=== PATIENT | male | born 1940 | race Caucasian/White ===

== ENCOUNTER → 2016-12-19 | Outpatient (CLI) | payer MEDICARE, OTHER ==
--- NOTE | 2016-12-20 10:34 | US ---
EXAMINATION TYPE: US thyroid st tissue head/neck DATE OF EXAM: 12/19/2016 4:44 PM COMPARISON: CT in PACS 10/15/2016 CLINICAL HISTORY: Thyroid Nodule E04.1. Abnormal CT GLAND SIZE: Right Lobe: 4.7 x 1.6 x 1.8 cm Overall Parenchyma: heterogenous Left Lobe: 5.6 x 3.2 x 3.4 cm Overall Parenchyma: heterogeneous Isthmus Thickness: 0.5 cm NODULES RIGHT: # of nodules measured on right: 2 1. 1.9 X 1.1 x 1.2 cm hypoechoic solid nodule at the mid pole with poorly defined margins; This no dule is wider than tall and shows intranodular vascularity. This corresponds to the CT finding. Prior size: No prior 2. 1.7 X 0.8 x 1.0 cm hypoechoic solid nodule superior to right thyroid adjacent to right carotid ar dread, possible parathyroid location with poorly defined margins; This nodule is wider than tall Prior size: No prior LEFT: # of nodules measured on left: 1 1. 4.4 X 2.7 x 3.4 cm hypoechoic mixed nodule at the lower pole with well-defined margins;This nodu le is wider than tall and shows intranodular vascularity. Prior size: Seen on CT ISTHMUS: # of nodules measured in the isthmus: 0 TECHNOLOGIST IMPRESSION: Bilateral neck scanned, no abnormal lymphadenopathy noted. Nodules bilatera lly with possible parathyroid nodule superior to right thyroid. Please note, this is an elderly patient who is hard to ambulate and unable to tolerate probe pressure during exam IMPRESSION: 1. Thyroid nodules. Monitoring is recommended.
== END | disposition home or self-care (01) ==
LOC: RADUSWWP 16:29
PROVIDERS: ATTEND Family Medicine
DX: E04.2 Nontoxic multinodular goiter (principal)
CPT/HCPCS: 76536

== ENCOUNTER → 2017-10-26 | Outpatient (CLI) | payer MEDICARE, OTHER ==
--- NOTE | 2017-10-26 17:58 | US ---
EXAMINATION TYPE: US venous doppler duplex LE RT DATE OF EXAM: 10/26/2017 5:23 PM COMPARISON: NONE CLINICAL HISTORY: Edema of RLE R60.0. Right leg pain. Patient states having two blood clots in left leg at age 59. Not warm to touch. SIDE PERFORMED: Right TECHNIQUE: The lower extremity deep venous system is examined utilizing real time linear array sonog casimiro with graded compression, doppler sonography and color-flow sonography. VESSELS IMAGED: External Iliac Vein (EIV) Common Femoral Vein Greater Saphenous Vein * Femoral Vein Popliteal Vein Small Saphenous Vein * Proximal Calf Veins (* superficial vessels) Patient was scanned in his mobilized chair with legs propped up. Limited exam due to patient joaquin ble to tolerate general probe pressure and patient body habitus. Compressions deferred due to patien t unable to tolerate. Second technologist, Briana, came in for second opinion/scan. Right Leg: Appears negative for acute DVT as visualized. Many limitations as state above. IMPRESSION: Negative exam. No evidence of deep venous thrombosis in the right leg.
== END ==
LOC: RADUSMAIN 16:32
PROVIDERS: ATTEND Physician Assistant
DX: R60.0 Localized edema (principal)

== ENCOUNTER → 2018-04-07 | Outpatient (CLI) | payer MEDICARE, OTHER ==
--- NOTE | 2018-04-07 11:39 | XR ---
EXAMINATION TYPE: XR cervical spine comp DATE OF EXAM: 04/07/2018 TECHNIQUE: Frontal, lateral, oblique, swimmers, and open mouth view of the cervical spine are obtaine d. HISTORY: M54.2 Cervicalgia COMPARISON: 10/03/2016 FINDINGS: The cervical spine is visualized in its entirety from C1 thru the top of T1 level, it is s atisfactory in alignment without evidence of acute fracture or dislocation. There are large flowing a nd bridging osteophytes seen anteriorly most compatible with diffuse radiographic skeletal hyperostos is. The known ossification of the posterior longitudinal ligament seen on CT is better visualized on CT dated 10/15/2016. The pre-vertebral soft tissue appears within normal limits. The C1-C2 articulat ion is within normal limits on the open mouth view. Oblique images were not performed on the prior of 10/03/2016. On the current examination there is at l east mild neural foraminal narrowing at C4-5 and C7-T1 on the left and 4 as well as C6-7 on the right . There is loss of the usual cervical lordosis. IMPRESSION: 1. 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 The known ossificatio n of the posterior longitudinal ligament is better evaluated on CT. Neural foraminal narrowing is see n bilaterally as described above. 2. The previously seen fracture of the inferior endplate of L5 is also not well appreciated radiograp hically with no vertebral body height loss or malalignment.
== END | disposition home or self-care (01) ==
LOC: RADXRMAIN 10:54
PROVIDERS: ATTEND Family Medicine
DX: M48.8X2 Other specified spondylopathies, cervical region (principal); M48.02 Spinal stenosis, cervical region
CPT/HCPCS: 72050

== ENCOUNTER 2019-07-06 17:13 | Emergency (ER) | payer MEDICARE, OTHER ==
[2019-07-06] MEDS ORDERED: SODIUM CHLORIDE 0.9% 1,000 ML IV STA (17:18)
[2019-07-06 17:41] LABS: Basophils # (A) 0.1 k/uL (0-0.2); Basophils % (A) 0 %; Eosinophils # (A) 0.4 k/uL (0-0.7); Eosinophils % (A) 3 %; HGB 14.3 gm/dL (13.0-17.5); Hypochromasia Slight; Lymphocytes # (A) 4.8 k/uL (1.0-4.8); Lymphocytes % (A) 31 %; MCH 28.2 pg (25.0-35.0); MCHC 31.8 g/dL (31.0-37.0); MCV 88.8 fL (80.0-100.0); Mean Platelet Volume 7.6; Monocytes # (A) 0.7 k/uL (0-1.0); Monocytes % (A) 5 %; Neutrophils # (A) 9.1 k/uL (1.3-7.7); Neutrophils % (A) 59 %; Platelet Count 260 k/uL (150-450); RBC 5.07 m/uL (4.30-5.90); RDW 14.5 % (11.5-15.5); WBC 15.5 k/uL (3.8-10.6)
--- NOTE | 2019-07-06 17:48 | ED ---
CPR HPI - General Chief Complaint: Cardiac Arrest/CPR Stated Complaint: Cardiac Arrest Source: EMS, RN notes reviewed, old records reviewed Mode of arrival: EMS Limitations: language barrier, altered mental status, physical limitation - History of Present Illness Initial Comments: This is a 78-year-old male the ER for evaluation, history shortening events or difficult to ascertain the patient was in a wheelchair at [facility] when he went unresponsive fell forward and hit his head he does have abrasion to his anterior head, history obtained from EMS and transport, CPR was started in the field was patient was known to be nonresponsive and was found to be without pulse. EMS s tates patient was asystolic the did give epi after intubation and CPR the patient went and A. fib with RVR, patient resents ER today with tube in good position no longer requiring CPR with positive pulse. MD Complaint: found unresponsive, collapsed during rest -: minute(s) Place: other ([facility]) Bystander CPR Performed: Yes AED Applied by Bystander/Piano Bench Assembler: Yes Shock Advised: No Initial Findings in the Field: unresponsive, no respirations, no pulse ROSC in the Field: Yes Associated Injuries: Yes (head inury) Associated Symptoms: trauma Treatments Prior to Arrival: intubation, chest compressions, epinephrine mgs # (1), spinal immobilization - Related Data Home Medications Medication Instructions Recorded Confirmed Acetaminophen Suppository [Tylenol 650 mg RECTAL Q4H PRN 07/06/19 07/06/19 Suppository] Docusate [Colace] 200 mg PO BID 07/06/19 07/06/19 Gabapentin 600 mg PO BID 07/06/19 07/06/19 MORPHINE ORAL CHANNING CONC 20mg/mL 5 - 20 mg PO Q1H PRN 07/06/19 07/06/19 [Roxanol Oral Soln Conc 20MG/ML] Miconazole 2% Cream [Monistat-Derm] 1 applic TOPICAL HS 07/06/19 07/06/19 Miconazole Nitrate [Lotrimin AF 1 applic TOPICAL TID 07/06/19 07/06/19 Powder] Pregabalin [Lyrica] 300 mg PO BID 07/06/19 07/06/19 oxyCODONE-APAP 10-325MG [Percocet 1 tab PO Q6H PRN 07/06/19 07/06/19 10-325 mg] Allergies Allergy/AdvReac Type Severity Reaction Status Date / Time aspirin Allergy Rash/Hives Verified 07/06/19 20:51 caffeine Allergy Unknown Verified 07/06/19 20:51 Fish Containing Products Allergy Rash/Hives Verified 07/06/19 20:51 [Fish] Iodinated Contrast- Oral and Allergy Unknown Verified 07/06/19 20:51 IV Dye Phenothiazines Allergy Swelling Verified 07/06/19 20:51 shellfish derived [Shellfish] Allergy Unknown Verified 07/06/19 20:51 arrow root Allergy Rash/Hives Uncoded 06/30/18 09:57 ct dye Allergy Anaphylaxis Uncoded 06/30/18 09:57 ivp dye Allergy Anaphylaxis Uncoded 06/30/18 09:57 percocet (generic) Allergy Rash/Hives Uncoded 07/06/19 20:51 pic line dye Allergy Anaphylaxis Uncoded 07/06/19 20:51 potato starch Allergy Rash/Hives Uncoded 07/06/19 20:51 water chestnut powder Allergy Rash/Hives Uncoded 07/06/19 20:51 Review of Systems ROS Statement: Those systems with pertinent positive or pertinent negative responses have been documented in the HPI. ROS Other: All systems not noted in ROS Statement are negative. Past Medical History Past Medical History: CVA/TIA, Diabetes Mellitus, Deep Vein Thrombosis (DVT), GERD/Reflux, Skin Disorder, Vascular Disorder Additional Past Medical History / Comment(s): "Empty Sella Syndrome, "nodules on prostate", "lump on thyroid" current healing wound under pannis, current "sores bilateral posterior thighs-being seen at [facility] by Dr. Garcia, past ulcers feet, toe fungus infection, IDDM type II, frequent headaches, CVA with L sided weakness/falls, PVD, urine incontinence-wears depends, R ear deaf, CANTWELL L ear, DVT L leg twice. History of Any Multi-Drug Resistant Organisms: MRSA Date of last positivie culture/infection: 2001 MDRO Source:: abdominal wound Past Surgical History: Adenoidectomy, Breast Surgery, Cholecystectomy, Tonsillectomy Additional Past Surgical History / Comment(s): Double mastectomy due to , mastoid surgery rt ear, bilateral cataract removal with lens, panniculectomy. Past Anesthesia/Blood Transfusion Reactions: No Reported Reaction Smoking Status: Never smoker - Past Family History Father Family Medical History: Cancer Additional Family Medical History / Comment(s): testicular cancer Mother Family Medical History: Myocardial Infarction (AR) Additional Family Medical History / Comment(s): Mother of a AR at the age of 60yrs. General Exam Limitations: language barrier, altered mental status, physical limitation General appearance: lethargic, obtunded, in distress Head exam: Absent: atraumatic (nasal abrasion and contusion) Eye exam: Present: normal appearance, PERRL, EOMI. Absent: scleral icterus, con junctival injection, periorbital swelling ENT exam: Present: normal exam, mucous membranes moist Neck exam: Present: normal inspection. Absent: tenderness, meningismus, lymphadenopathy Respiratory exam: Present: normal lung sounds bilaterally. Absent: respiratory distress, wheezes, rales, rhonchi, stridor Cardiovascular Exam: Present: tachycardia, irregular rhythm, normal heart sounds. Absent: systolic murmur, diastolic murmur, rubs, gallop, clicks GI/Abdominal exam: Present: soft, normal bowel sounds. Absent: distended, tenderness, guarding, rebound, rigid Extremities exam: Present: normal inspection, full ROM, normal capillary refill. Absent: tenderness, pedal edema, joint swelling, calf tenderness Back exam: Present: normal inspection Neurological exam: Present: alert, oriented X3, CN II-XII intact Psychiatric exam: Present: normal affect, normal mood Skin exam: Present: warm, dry, intact, normal color. Absent: rash Course Vital Signs 07/06/19 07/06/19 07/06/19 17:14 17:45 17:52 Temperature 97.6 F Pulse Rate 95 80 75 Respiratory 16 18 Rate Blood Pressure 180/92 94/48 80/24 O2 Sat by Pulse 95 97 Oximetry 07/06/19 07/06/19 07/06/19 17:53 18:00 18:10 Temperature Pulse Rate 84 73 74 Respiratory 17 18 17 Rate Blood Pressure 82/24 82/24 97/50 O2 Sat by Pulse 93 L Oximetry 07/06/19 07/06/19 07/06/19 18:20 19:29 20:33 Temperature Pulse Rate 67 68 Respiratory 16 16 16 Rate Blood Pressure 118/92 138/66 O2 Sat by Pulse 97 Oximetry - Reevaluation(s) Reevaluation #1: 07/06/19 20:18 Medical records reviewed Reevaluation #2: 07/06/19 20:18 Patient showing no significant clinical improvement Reevaluation #3: 07/06/19 20:18 Family presenting at bedside with executive orders, will, DO NOT RESUSCITATE orders, we will extubate patient according to his prior wishes Reevaluation #4: 07/06/19 21:13 The decision was made to extubate patient in conjunction with family, patient upon extubation had significant deterioration in oxygen blood pressure and heart rate eventually going asystolic with no heart rate Pupils fixed and dilated the patient was pronounced on 07/06/2019 at 2112 Reevaluation #5: 07/06/19 21:13 Spoke with family regarding patient's condition, questions are answered - Consultations Consultation #1: Spoke with Dr. Veronica as well as medical research assistant regarding patient Medical Decision Making - Medical Decision Making 78 male the ER for evaluation, patient expires here in the emergency department under no CODE STATUS, no CPR. Patient came in his cardiac arrest life- sustaining support was withdrawn and patient did pass away, patient at [phone] of [phone] found to be asystolic with no heart sounds, apneic with pupils fixed and dilated. Did speak with family and family was at bedside during patient's passing - Lab Data Result diagrams: 07/06/19 17:24 07/06/19 17:24 Lab Results 07/06/19 07/06/19 07/06/19 Range/Units 17:24 17:24 17:24 WBC (3.8-10.6) k/uL RBC (4.30-5.90) m/uL Hgb (13.0-17.5) gm/dL Hct (39.0-53.0) % MCV (80.0-100.0) fL MCH (25.0-35.0) pg MCHC (31.0-37.0) g/dL RDW (11.5-15.5) % Plt Count (150-450) k/uL Neutrophils % % Lymphocytes % % Monocytes % % Eosinophils % % Basophils % % Neutrophils # (1.3-7.7) k/uL Lymphocytes # (1.0-4.8) k/uL Monocytes # (0-1.0) k/uL Eosinophils # (0-0.7) k/uL Basophils # (0-0.2) k/uL Hypochromasia PT 11.1 (9.0-12.0) sec INR 1.1 (<1.2) APTT 29.9 (22.0-30.0) sec D-Dimer >35.20 H (<0.60) mg/L FEU Sodium 139 (137-145) mmol/L Potassium 4.5 (3.5-5.1) mmol/L Chloride 108 H (98-107) mmol/L Carbon Dioxide 20 L (22-30) mmol/L Anion Gap 11 mmol/L BUN 24 H (9-20) mg/dL Creatinine 0.97 (0.66-1.25) mg/dL Est GFR (CKD-EPI)AfAm 86 (>60 ml/min/1.73 sqM) Est GFR (CKD-EPI)NonAf 75 (>60 ml/min/1.73 sqM) Glucose 382 H (74-99) mg/dL Lactic Ac Sepsis Rflx Plasma Lactic Acid Bob (0.7-2.0) mmol/L Calcium 8.4 (8.4-10.2) mg/dL Phosphorus 4.4 (2.5-4.5) mg/dL Magnesium 1.9 (1.6-2.3) mg/dL Total Bilirubin 0.7 (0.2-1.3) mg/dL AST 41 (17-59) U/L ALT 15 L (21-72) U/L Alkaline Phosphatase 143 H (38-126) U/L Creatine Kinase 90 (55-170) U/L Troponin I (0.000-0.034) ng/mL NT-Pro-B Natriuret Pep 300 pg/mL Total Protein 6.5 (6.3-8.2) g/dL Albumin 3.5 (3.5-5.0) g/dL 07/06/19 07/06/19 07/06/19 Range/Units 17:24 17:24 17:24 WBC 15.5 H (3.8-10.6) k/uL RBC 5.07 (4.30-5.90) m/uL Hgb 14.3 (13.0-17.5) gm/dL Hct 45.0 (39.0-53.0) % MCV 88.8 (80.0-100.0) fL MCH 28.2 (25.0-35.0) pg MCHC 31.8 (31.0-37.0) g/dL RDW 14.5 (11.5-15.5) % Plt Count 260 (150-450) k/uL Neutrophils % 59 % Lymphocytes % 31 % Monocytes % 5 % Eosinophils % 3 % Basophils % 0 % Neutrophils # 9.1 H (1.3-7.7) k/uL Lymphocytes # 4.8 (1.0-4.8) k/uL Monocytes # 0.7 (0-1.0) k/uL Eosinophils # 0.4 (0-0.7) k/uL Basophils # 0.1 (0-0.2) k/uL Hypochromasia Slight PT (9.0-12.0) sec INR (<1.2) APTT (22.0-30.0) sec D-Dimer (<0.60) mg/L FEU Sodium (137-145) mmol/L Potassium (3.5-5.1) mmol/L Chloride (98-107) mmol/L Carbon Dioxide (22-30) mmol/L Anion Gap mmol/L BUN (9-20) mg/dL Creatinine (0.66-1.25) mg/dL Est GFR (CKD-EPI)AfAm (>60 ml/min/1.73 sqM) Est GFR (CKD-EPI)NonAf (>60 ml/min/1.73 sqM) Glucose (74-99) mg/dL Lactic Ac Sepsis Rflx Plasma Lactic Acid Bob 4.9 H* (0.7-2.0) mmol/L Calcium (8.4-10.2) mg/dL Phosphorus (2.5-4.5) mg/dL Magnesium (1.6-2.3) mg/dL Total Bilirubin (0.2-1.3) mg/dL AST (17-59) U/L ALT (21-72) U/L Alkaline Phosphatase (38-126) U/L Creatine Kinase (55-170) U/L Troponin I <0.012 (0.000-0.034) ng/mL NT-Pro-B Natriuret Pep pg/mL Total Protein (6.3-8.2) g/dL Albumin (3.5-5.0) g/dL 08/07/19 Range/Units 17:48 WBC (3.8-10.6) k/uL RBC (4.30-5.90) m/uL Hgb (13.0-17.5) gm/dL Hct (39.0-53.0) % MCV (80.0-100.0) fL MCH (25.0-35.0) pg MCHC (31.0-37.0) g/dL RDW (11.5-15.5) % Plt Count (150-450) k/uL Neutrophils % % Lymphocytes % % Monocytes % % Eosinophils % % Basophils % % Neutrophils # (1.3-7.7) k/uL Lymphocytes # (1.0-4.8) k/uL Monocytes # (0-1.0) k/uL Eosinophils # (0-0.7) k/uL Basophils # (0-0.2) k/uL Hypochromasia PT (9.0-12.0) sec INR (<1.2) APTT (22.0-30.0) sec D-Dimer (<0.60) mg/L FEU Sodium (137-145) mmol/L Potassium (3.5-5.1) mmol/L Chloride (98-107) mmol/L Carbon Dioxide (22-30) mmol/L Anion Gap mmol/L BUN (9-20) mg/dL Creatinine (0.66-1.25) mg/dL Est GFR (CKD-EPI)AfAm (>60 ml/min/1.73 sqM) Est GFR (CKD-EPI)NonAf (>60 ml/min/1.73 sqM) Glucose (74-99) mg/dL Lactic Ac Sepsis Rflx Y Plasma Lactic Acid Bob (0.7-2.0) mmol/L Calcium (8.4-10.2) mg/dL Phosphorus (2.5-4.5) mg/dL Magnesium (1.6-2.3) mg/dL Total Bilirubin (0.2-1.3) mg/dL AST (17-59) U/L ALT (21-72) U/L Alkaline Phosphatase (38-126) U/L Creatine Kinase (55-170) U/L Troponin I (0.000-0.034) ng/mL NT-Pro-B Natriuret Pep pg/mL Total Protein (6.3-8.2) g/dL Albumin (3.5-5.0) g/dL - EKG Data -: EKG Interpreted by Me (EKG shows sinus rhythm rate of 85, HI 234, QRS 04, QTc 473) Critical Care Time Critical Care Time: Yes Total Critical Care Time: 31 Disposition Clinical Impression: Cardiac arrest Disposition: Condition: Critical Is patient prescribed a controlled substance at d/c from ED?: No Referrals: Kenan Ytaes MD [Primary Care Provider] - 1-2 days Preliminary Cause of : CPA
[2019-07-06 17:49] LABS: Albumin 3.5 g/dL (3.5-5.0); Calcium 8.4 mg/dL (8.4-10.2); Magnesium 1.9 mg/dL (1.6-2.3); Phosphorus 4.4 mg/dL (2.5-4.5); Potassium 4.5 mmol/L (3.5-5.1); Total Bilirubin 0.7 mg/dL (0.2-1.3); Total Protein 6.5 g/dL (6.3-8.2)
[2019-07-06 17:59] LABS: INR 1.1 (<1.2); Partial Thromboplastin Time 29.9 sec (22.0-30.0); Prothrombin Time 11.1 sec (9.0-12.0)
[2019-07-06] MEDS ORDERED: NOREPINEPHRINE 4 MG in SODIUM CHLORIDE 0.9% 250 ML IV SCH (18:00)
[2019-07-06 18:02] LABS: D-Dimer >35.20 mg/L FEU (<0.60)
[2019-07-06] MEDS ORDERED: MIDAZOLAM HCL 50 MG in SODIUM CHLORIDE 0.9% 40 ML IV SCH (18:15)
[2019-07-06] MEDS ORDERED: methylPREDNISolone SOD SUCCI 125 MG/2 ML VIAL IV STA (18:22)
[2019-07-06] MEDS ORDERED: FAMOTIDINE 20 MG/2 ML VIAL IV STA (18:22)
[2019-07-06] MEDS ORDERED: diphenhydrAMINE 50 MG/ML 1 ML VIAL IVP STA (18:22)
[2019-07-06 18:31] VITALS: RESP 16
--- NOTE | 2019-07-06 18:49 | CT ---
EXAMINATION TYPE: CT brain jeannette wo con DATE OF EXAM: 07/06/2019 COMPARISON: 10/15/2016 HISTORY: Possible cardiac arrest, patient went unresponsive. CT DLP: 1707.8 mGycm Automated exposure control for dose reduction was used. TECHNIQUE: CT scan of the head and cervical spine are performed without contrast. FINDINGS: HEAD CT: There is no acute intracranial hemorrhage, mass effect, or midline shift identified. Low-at tenuation is seen within the bilateral mak radiata and centrum ovale, nonspecific, but no definite new attenuation defect is seen. The ventricles and sulci are within normal limits in size. The glob es are intact and the visualized sinuses are clear. CERVICAL SPINE CT is negative for malalignment. There are bilateral nondisplaced C1 posterior arch fracture lines. In addition, there is a right C2 pars interarticularis nondisplaced fracture line. There are no other fractures. Markedly exuberant cervical spondylosis changes are seen at all levels, with ligamentous calcificatio n seen anterior and posterior to the vertebral bodies. The patient is intubated. Incidental findin cm left lower thyroid lobe hypodense focus is noted, which can be fully charact erized with nonurgent follow-up ultrasound. Results discussed with ordering physician. IMPRESSION: 1) HEAD CT: No definite acute process. 2) CERVICAL SPINE CT: Nondisplaced C1 and C2 fractures. Exuberant osteophytic spur formation narrowi ng the C1-C3 spinal canal. Incidental findin cm left lower thyroid lobe hypodense focus is noted, which can be fully charact erized with nonurgent follow-up ultrasound.
--- NOTE | 2019-07-06 18:53 | XR ---
EXAMINATION: XR chest 1V DATE AND TIME: 07/06/2019 5:56 PM CLINICAL INDICATION: PHH; Weakness TECHNIQUE: AP upright portable COMPARISON: 10/30/2017 FINDINGS: The ET tube tip superimposed over the proximal right mainstem bronchus and may be better pl aced if retracted 5 cm. The lungs are clear. The pleural spaces are negative. The cardiac silhouette is mildly enlarged. The remainder of the mediastinal silhouette is unremarkable. The skeletal structures and soft tissues are negative for acute findings. Results discussed with ordering physician. IMPRESSION: 1. NO ACUTE PROCESS. 2. HOWEVER, ET TUBE COMMENTS DISCUSSED.
--- NOTE | 2019-07-06 19:54 | CT ---
EXAMINATION TYPE: CT angio chest with contrast and with 3-D reconstruction renderings DATE OF EXAM: 07/06/2019 7:10 PM COMPARISON: Gastric lap band noted. HISTORY: Elevated d-dimer. Patient collapsed today. CT DLP: 979.8 mGycm Automated exposure control for dose reduction was used. CONTRAST: CTA scan of the thorax is performed with IV Contrast, patient injected with 100 mL of Isovu e 370, pulmonary embolism protocol. Three-D reconstructions. FINDINGS: Limitations of the CTA examination: Prominent patient motion artifact, and only mild-moderate opacifi cation of the pulmonary arterial tree. AIRWAYS AND LUNGS AND PLEURAL SPACES: Patient is intubated, with ET tube tip within the proximal righ t mainstem bronchus, and may be better placed 5 cm proximally. There is a white-out of the left hemithorax with complete atelectasis of the left upper and left lo wer lobes. Concurrent bronchopneumonia can be excluded clinically. Left pleural spaces negative. The right lung is clear and well expanded. Right pleural space negative. MEDIASTINUM/CAITLIN: The pulmonary arterial tree appears negative for filling defects, as seen. Note the limitations of this CTA above. There are no acute aortic findings. There is moderate cardiomegaly with panchamber enlargement and mild coronary calcifications. No pericardial effusion. No adenopathy. SKELETAL STRUCTURES: No acute skeletal findings. OTHER: No incidental extra thoracic findings. IMPRESSION: 1) ETT within proximal right mainstem bronchus. 1) NEGATIVE FOR PULMONARY EMBOLISM, DISCUSSED. 2) WHITE-OUT OF THE LEFT HEMITHORAX.
--- NOTE | 2019-07-06 20:07 | CT ---
EXAMINATION TYPE: CT abdomen pelvis w con DATE OF EXAM: 07/06/2019 COMPARISON: None HISTORY: Elevated d-dimer. Patient collapsed today. CT DLP: 2421.5 mGycm Automated exposure control for dose reduction was used. TECHNIQUE: Helical acquisition of images was performed from the lung bases through the pelvis. CONTRAST: Performed without Oral Contrast and with IV Contrast, patient injected with mL of Isovue 37 0. FINDINGS: LIVER/GB: No significant abnormality is appreciated. PANCREAS: No significant abnormality is seen. SPLEEN: No significant abnormality is seen. ADRENALS: No significant abnormality is seen. KIDNEYS: No significant abnormality is seen. FREE AIR: No free air is visualized. RETROPERITONEAL ADENOPATHY: None visualized REPRODUCTIVE ORGANS: No significant abnormality is seen URINARY BLADDER: No significant abnormality is seen. PELVIC ADENOPATHY: None visualized. OSSEOUS STRUCTURES: No significant abnormality is seen. BOWEL: No significant abnormality is seen. VASCULATURE: No acute findings. Specifically, no venous thrombus. OTHER: Unremarkable. IMPRESSION: No acute abdominal pelvic process.
[2019-07-06 20:13] VITALS: TEMP 97.6
[2019-07-06] MEDS ORDERED: MORPHINE SULFATE 4 MG/ML SYRINGE IV PRN (20:24)
[2019-07-06] MEDS ORDERED: NALOXONE 0.4 MG/ML 1 ML VIAL IV PRN (20:24)
[2019-07-06] MEDS ORDERED: IPRATROPIUM-ALBUTEROL 3 ML NEB INHALATION PRN (20:24)
[2019-07-06] MEDS ORDERED: DEXTROSE 5%-0.45% NACL 1,000 ML IV SCH (20:30)
[2019-07-06 20:39] VITALS: BP 138/66; PULSE 68
== END 2019-07-06 22:30 | disposition expired ==
LOC: EC 17:13
DX: I46.9 Cardiac arrest, cause unspecified (principal); S00.33XA Contusion of nose, initial encounter; Z86.73 Personal history of transient ischemic attack (TIA), and cerebral infarction without residual deficits; Z86.14 Personal history of Methicillin resistant Staphylococcus aureus infection; Z79.899 Other long term (current) drug therapy; Z88.6 Allergy status to analgesic agent; Z91.041 Radiographic dye allergy status; Z88.8 Allergy status to other drugs, medicaments and biological substances; Z91.013 Allergy to seafood; Z91.018 Allergy to other foods; W19.XXXA Unspecified fall, initial encounter; Y92.512 Supermarket, store or market as the place of occurrence of the external cause
CPT/HCPCS: 99291; 96365; 96375 ×3; 36415; 93005; 85379; 83880; 80053; 82550; 83605; 83735; 84100; 84484; 85025; 85610; 85730; 71045; 72125; 70450; 71275; 74177; J1200; J2930; Q9967; 94002